=== PATIENT | male | born 1965 | race Two or more races ===

== ENCOUNTER 2017-12-05 13:55 | Inpatient (IN) | payer MEDICARE, MEDICAID ==
[~2017-12-05] VITALS: Ht 172.7 cm; Wt 65.4 kg
[~2017-12-05 13:55] MED LIST: CLONIDINE; [UNRECOGNIZED DRUG - OTHER]
[2017-12-05] MEDS: NICARDIPINE 25MG/250ML BAG KIT 250 ML IV SCH ×2 (14:47→19:30)
[2017-12-05] MEDS ORDERED: MIDAZOLAM DRIP 50 mg/50mL 50 ML IV ONE (15:04)
[2017-12-05 15:10] LABS: INR 1.27 (0.9-1.15); Partial Thromboplastin Time 21.7 sec (23.78-33.04); Prothrombin Time 13.4 sec (9.27-12.13)
[2017-12-05 15:13] LABS: Lactic Acid w/Reflex 8.6 mmol/L (0.4-2.0)
[2017-12-05 15:16] LABS: Alanine Aminotransferase 30 U/L (16-61); Albumin 3.5 g/dL (3.4-5.0); Alkaline Phosphatase 230 U/L (45-117); Anion Gap 27 (5-15); Aspartate Aminotransferase 35 U/L (15-37); BUN/Creatinine Ratio 5.8; Bilirubin, Total 0.6 mg/dL (0.2-1.0); Blood Alcohol < 3.0 mg/dL (0-5); Blood Urea Nitrogen 53 mg/dL (7-18); Calcium 6.7 mg/dL (8.5-10.1); Carbon Dioxide 16 mmol/L (21-32); Chloride 71 mmol/L (98-107); GFR African American 8 mL/min; GFR Non-African American 7 mL/min; Magnesium 2.7 mg/dL (1.6-2.6); Potassium 4.6 mmol/L (3.5-5.1); Total Protein 7.3 g/dL (6.4-8.2)
[2017-12-05] MEDS: MIDAZOLAM DRIP 50 mg/50mL 50 ML IV SCH ×2 (15:25→22:16)
[2017-12-05 15:28] LABS: Sodium 114 mmol/L (136-145)
[2017-12-05 15:29] LABS: Glucose 2148 mg/dL (74-106)
[2017-12-05] MEDS ORDERED: InsuLIN R (HUMAN) 100 UNITS in SODIUM CHL 0.9% 99 ML IV SCH ×3 (15:31→23:52)
[2017-12-05 15:33] LABS: Basophils # (auto) 0 uL; Eosinophils # (auto) 0 uL; Eosinophils % (auto) 0.4 % (0.0-7.0); Hematocrit 37.4 % (41.0-53.0); Hemoglobin 10.5 g/dL (13.5-17.5); Lymphocytes # (auto) 0.4 uL; Lymphocytes % (auto) 3.4 % (10.0-50.0); Mean Corpuscular Hemoglobin 31.6 pg (28.0-32.0); Mean Corpuscular Hgb Conc. 28.1 g/dL (32.0-36.0); Mean Corpuscular Volume 112.4 fL (80.0-100.0); Monocytes # (auto) 0.4 uL; Monocytes % (auto) 3.5 % (0.0-12.0); Neutrophils # (auto) 10.4 uL; Neutrophils % (auto) 92.7 % (37.0-80.0); Nucleated Red Blood Cells % 0.1 %; Platelet Count (auto) 185 10^3/uL (140-450); Red Blood Cells 3.33 10^6/uL (4.5-5.90); White Blood Cell 11.2 10^3/uL (4.4-10.8)
[2017-12-05 15:45] VITALS: BP 115/82
[2017-12-05 16:22] VITALS: BP 115/82
[2017-12-05] MEDS ORDERED: DEXTROSE (50%) 50ML SYRG IV PRN (16:30)
[2017-12-05] MEDS ORDERED: MORPHINE SULF(PF) 0.5MG/ML 10ML VIAL IV PRN (16:30)
[2017-12-05] MEDS ORDERED: PIPERACILLIN-TAZOB 2.25GM 50 ML IV ONE (16:30)
[2017-12-05] MEDS ORDERED: InsuLIN REG 1unit/0.01ml Soln (100units/ml) IV ONE (16:30)
[2017-12-05] MEDS ORDERED: VANCOMYCIN PER PHARMACY 0 MG IV SCH (16:30)
[2017-12-05] MEDS ORDERED: ALBUTEROL SULF 2.5 MG/0.5ML(0.5%) NEB SOLN NEB PRN (16:30)
[2017-12-05] MEDS ORDERED: NITROGLYCERIN 0.4 MG SL TAB SL PRN (16:30)
[2017-12-05] MEDS ORDERED: LORazepam 2MG/ML-1ML VIAL IV PRN (16:30)
[2017-12-05] MEDS: PROPOFOL 100 ML IV SCH (16:37)
[2017-12-05] MEDS: ACCU-CHEK COMFORT CURVE STRIP VI SCH ×5 (17:08→22:35)
[2017-12-05 17:48] LABS: BUN/Creatinine Ratio 6.5; Calcium 6.1 mg/dL (8.5-10.1); Potassium 4.4 mmol/L (3.5-5.1)
[2017-12-05] MEDS ORDERED: AZITHROMYCIN 500MG/ 250ML 250 ML IV ONE (18:00)
[2017-12-05] MEDS ORDERED: VANCOMYCIN 1GM/250ML 250 ML IV ONE (18:00)
[2017-12-05 18:19] VITALS: BP 116/54
[2017-12-05] MEDS: ALBUTEROL SULF 2.5 MG/0.5ML(0.5%) NEB SOLN NEB SCH (18:19)
[2017-12-05] MEDS: IPRATROPIUM BROM 0.5 MG/2.5ML INH SOL NEB SCH (18:19)
[2017-12-05] MEDS ORDERED: ALBUTEROL SULF 2.5 MG/0.5ML(0.5%) NEB SOLN NEB ONE (19:00)
[2017-12-05 20:00] VITALS: BP 119/57
[2017-12-05 20:34] VITALS: BP 132/45
[2017-12-05 22:19] VITALS: BP 112/44
[2017-12-05] MEDS ORDERED: InsuLIN REG 1unit/0.01ml Soln (100units/ml) ONE (22:40)
[2017-12-05 23:03] LABS: BUN/Creatinine Ratio 6.1; Calcium 6.2 mg/dL (8.5-10.1)
[2017-12-05 23:22] LABS: Potassium 2.7 mmol/L (3.5-5.1)
[2017-12-06] VITALS (29 sets, daily range): BP systolic 100–152; BP diastolic 34–80
[2017-12-06] MEDS ORDERED: DEXTROSE (50%) 50ML SYRG IV PRN
[2017-12-06] MEDS: IPRATROPIUM BROM 0.5 MG/2.5ML INH SOL NEB SCH ×4 (00:17→18:00)
[2017-12-06] MEDS: ALBUTEROL SULF 2.5 MG/0.5ML(0.5%) NEB SOLN NEB SCH ×4 (00:17→18:00)
[2017-12-06] MEDS: ACCU-CHEK COMFORT CURVE STRIP VI SCH ×27 (01:30→22:30)
[2017-12-06] MEDS ORDERED: SODIUM CHL 3% 500 ML IV ONE (02:30)
[2017-12-06] MEDS ORDERED: POTASSIUM CHL 20MEQ/100ML 100 ML IV ONE (02:33)
[2017-12-06] MEDS: POTASSIUM CHL 20MEQ/100ML 100 ML IV SCH ×8 (03:04→22:20)
[2017-12-06] MEDS: PIPERACILLIN-TAZOB 2.25GM 50 ML IV SCH ×2 (04:57→19:32)
[2017-12-06] MEDS: MIDAZOLAM DRIP 50 mg/50mL 50 ML IV SCH (05:10)
[2017-12-06 05:55] LABS: Hematocrit 29.1 % (41.0-53.0); Hemoglobin 9.4 g/dL (13.5-17.5); Mean Corpuscular Hemoglobin 31.8 pg (28.0-32.0); Mean Corpuscular Hgb Conc. 32.1 g/dL (32.0-36.0); Platelet Count (auto) 78 10^3/uL (140-450); Red Blood Cells 2.94 10^6/uL (4.5-5.90); Red Cell Distribution Width 13.9 % (11.8-14.3); White Blood Cell 6.8 10^3/uL (4.4-10.8)
[2017-12-06 06:24] LABS: Albumin 2.5 g/dL (3.4-5.0); BUN/Creatinine Ratio 6.2; Bilirubin, Total 0.6 mg/dL (0.2-1.0); Calcium 7.2 mg/dL (8.5-10.1); Total Protein 5.3 g/dL (6.4-8.2)
[2017-12-06 06:30] LABS: Potassium 2.6 mmol/L (3.5-5.1)
[2017-12-06 06:32] LABS: Basophils % (manual) 0 (0.0-2.0); Blast Cells 0; Eosinophils % (manual) 0 (0-7); Metamyelocytes % 0; Myelocytes % 0; Promyelocytes % 0; Reactive Lymphocytes 0
[2017-12-06 06:54] LABS: Band Neutrophils % (manual) 8; Lymphocytes % (manual) 3 (10.0-50.0); Monocytes % (manual) 6 (0-12)
[2017-12-06] MEDS ORDERED: NICARDIPINE 25MG/250ML BAG KIT 250 ML IV SCH (07:45)
[2017-12-06] MEDS: NICARDIPINE 25MG/250ML BAG KIT 250 ML IV SCH ×4 (08:00→20:30)
[2017-12-06] MEDS: AZITHROMYCIN 500MG/ 250ML 250 ML IV SCH (10:30)
[2017-12-06] MEDS ORDERED: VANCOMYCIN 1GM/250ML 250 ML IV ONE (13:00)
[2017-12-06] MEDS ORDERED: SODIUM CHL 0.9% 1000 ML BAG XX ONE (15:30)
[2017-12-06] MEDS ORDERED: EPOETIN ALFA 10,000 UNIT/1 ML VIAL IV ONE (15:30)
[2017-12-06] MEDS: PROPOFOL 100 ML IV SCH ×2 (15:48→21:41)
[2017-12-06 15:59] LABS: BUN/Creatinine Ratio 6.5; Calcium 7.7 mg/dL (8.5-10.1)
[2017-12-06 16:10] LABS: Potassium 2.9 mmol/L (3.5-5.1)
[2017-12-06] MEDS ORDERED: DILTIAZEM HCL 25 MG/5 ML VIAL IV ONE ×3 (16:17→16:45)
[2017-12-06] MEDS: DILTIAZEM 125mg/125ml BAG KIT 125 ML IV SCH (17:17)
[2017-12-06] MEDS ORDERED: LIDOCAINE 2% (LOCAL ANESTH.) PF 5ml SDV ONE (17:20)
[2017-12-06] MEDS ORDERED: IODIXANOL 320MG/ML 100ML BTL IV ONE (17:20)
[2017-12-06] MEDS ORDERED: ANGIOMAX 250 MG VIAL IV ONE (17:25)
[2017-12-06] MEDS ORDERED: SODIUM CHL 0.9% 0 ML ONE (17:26)
[2017-12-06] MEDS ORDERED: EPTIFIBATIDE INJ (2MG/ML) 10ML VIAL IV ONE (17:26)
[2017-12-06] MEDS ORDERED: ATROPINE SULF 1 MG/10ml SYR ONE (18:05)
[2017-12-06] MEDS ORDERED: EPTIFIBATIDE DRIP(0.75MG/ML) 0 ML IV ONE (18:05)
[2017-12-06] MEDS ORDERED: DIGOXIN (250MCG/ML) 2 ML AMPULE ONE (18:13)
[2017-12-07] VITALS (101 sets, daily range): BP systolic 80–148; BP diastolic 31–84
[2017-12-07] MEDS: ALBUTEROL SULF 2.5 MG/0.5ML(0.5%) NEB SOLN NEB SCH ×4 (00:24→18:58)
[2017-12-07] MEDS: IPRATROPIUM BROM 0.5 MG/2.5ML INH SOL NEB SCH ×4 (00:24→18:58)
[2017-12-07 01:07] LABS: Basophils # (auto) 0 uL; Basophils % (auto) 0.1 % (0.0-2.0); Eosinophils # (auto) 0 uL; Eosinophils % (auto) 0.1 % (0.0-7.0); Hematocrit 34.6 % (41.0-53.0); Hemoglobin 11.9 g/dL (13.5-17.5); Lymphocytes # (auto) 0.6 uL; Lymphocytes % (auto) 3.6 % (10.0-50.0); Mean Corpuscular Hemoglobin 30.6 pg (28.0-32.0); Mean Corpuscular Hgb Conc. 34.3 g/dL (32.0-36.0); Mean Corpuscular Volume 89.1 fL (80.0-100.0); Monocytes # (auto) 0.7 uL; Monocytes % (auto) 4.2 % (0.0-12.0); Neutrophils # (auto) 16.1 uL; Platelet Count (auto) 101 10^3/uL (140-450); Red Blood Cells 3.88 10^6/uL (4.5-5.90); Red Cell Distribution Width 13.8 % (11.8-14.3); White Blood Cell 17.5 10^3/uL (4.4-10.8)
[2017-12-07 01:17] LABS: Albumin 2.4 g/dL (3.4-5.0); BUN/Creatinine Ratio 6.5; Bilirubin, Total 0.6 mg/dL (0.2-1.0); Calcium 8.1 mg/dL (8.5-10.1); Potassium 3.8 mmol/L (3.5-5.1); Total Protein 5.6 g/dL (6.4-8.2)
[2017-12-07] MEDS: NICARDIPINE 25MG/250ML BAG KIT 250 ML IV SCH ×5 (01:30→21:30)
[2017-12-07] MEDS: ACCU-CHEK COMFORT CURVE STRIP VI SCH ×9 (01:30→23:30)
[2017-12-07] MEDS ORDERED: PHENYLEPHRINE IV 250 ML IV ONE ×3 (02:33→06:06)
[2017-12-07] MEDS: PHENYLEPHRINE INJ 20 MG in D5W 5% 250 ML IV SCH ×2 (02:56→05:08)
[2017-12-07 04:03] LABS: Basophils # (auto) 0 uL; Basophils % (auto) 0.1 % (0.0-2.0); Eosinophils # (auto) 0 uL; Eosinophils % (auto) 0.2 % (0.0-7.0); Hematocrit 31.2 % (41.0-53.0); Lymphocytes # (auto) 0.9 uL; Lymphocytes % (auto) 5.9 % (10.0-50.0); Mean Corpuscular Hemoglobin 31.4 pg (28.0-32.0); Mean Corpuscular Hgb Conc. 35.2 g/dL (32.0-36.0); Mean Corpuscular Volume 89.4 fL (80.0-100.0); Monocytes # (auto) 0.6 uL; Monocytes % (auto) 4.1 % (0.0-12.0); Neutrophils # (auto) 14.1 uL; Neutrophils % (auto) 89.7 % (37.0-80.0); Nucleated Red Blood Cells % 0.2 %; Platelet Count (auto) 87 10^3/uL (140-450); Red Blood Cells 3.49 10^6/uL (4.5-5.90); Red Cell Distribution Width 13.7 % (11.8-14.3); White Blood Cell 15.7 10^3/uL (4.4-10.8)
[2017-12-07 04:28] LABS: Albumin 2.2 g/dL (3.4-5.0); BUN/Creatinine Ratio 6.1; Bilirubin, Total 0.6 mg/dL (0.2-1.0); Calcium 7.6 mg/dL (8.5-10.1); Potassium 4.1 mmol/L (3.5-5.1); Total Protein 5.1 g/dL (6.4-8.2)
[2017-12-07] MEDS: PIPERACILLIN-TAZOB 2.25GM 50 ML IV SCH ×2 (04:59→17:15)
[2017-12-07] MEDS ORDERED: DEXTROSE (50%) 50ML SYRG IV PRN (06:45)
[2017-12-07] MEDS: InsuLIN REG 1unit/0.01ml Soln (100units/ml) SC SCH ×4 (06:52→23:31)
[2017-12-07] MEDS: PROPOFOL 100 ML IV SCH (08:11)
[2017-12-07] MEDS ORDERED: PHENYLEPHRINE INJ 40 MG in SODIUM CHL 0.9% 250 ML IV SCH (08:26)
[2017-12-07] MEDS ORDERED: PHENYLEPHRINE INJ 40 MG in D5W 5% 250 ML IV SCH (08:30)
[2017-12-07] MEDS ORDERED: SODIUM CHL 0.9% 1000 ML BAG XX ONE (08:45)
[2017-12-07] MEDS: PHENYLEPHRINE INJ 40 MG in D5W 5% 250 ML IV SCH ×4 (08:53→21:15)
[2017-12-07] MEDS: AZITHROMYCIN 500MG/ 250ML 250 ML IV SCH (09:54)
[2017-12-07] MEDS: DILTIAZEM 125mg/125ml BAG KIT 125 ML IV SCH (10:20)
[2017-12-07] MEDS: NOREPINEPHRINE 8 MG/250ML KIT 250 ML IV SCH (11:15)
[2017-12-07] MEDS ORDERED: NOREPINEPHRINE 8 MG/250ML KIT 250 ML IV ONE (11:17)
[2017-12-07] MEDS: MIDAZOLAM DRIP 50 mg/50mL 50 ML IV SCH (15:11)
[2017-12-08] VITALS (56 sets, daily range): BP systolic 35–164; BP diastolic 12–79
[2017-12-08] MEDS: ALBUTEROL SULF 2.5 MG/0.5ML(0.5%) NEB SOLN NEB SCH ×3 (00:19→11:59)
[2017-12-08] MEDS: IPRATROPIUM BROM 0.5 MG/2.5ML INH SOL NEB SCH ×3 (00:19→11:59)
[2017-12-08] MEDS ORDERED: PHENYLEPHRINE IV 250 ML IV ONE ×2 (00:27→06:45)
[2017-12-08] MEDS ORDERED: PHENYLEPHRINE HCL 10 MG/ML VL ONE ×2 (00:28→06:46)
[2017-12-08] MEDS: NICARDIPINE 25MG/250ML BAG KIT 250 ML IV SCH ×3 (02:30→12:30)
[2017-12-08 04:54] LABS: Basophils # (auto) 0 uL; Eosinophils # (auto) 0 uL; Eosinophils % (auto) 0.1 % (0.0-7.0); Hemoglobin 10.6 g/dL (13.5-17.5); Lymphocytes # (auto) 0.3 uL; Red Blood Cells 3.35 10^6/uL (4.5-5.90); White Blood Cell 13.5 10^3/uL (4.4-10.8)
[2017-12-08 04:59] LABS: Basophils % (auto) 0.2 % (0.0-2.0); Hematocrit 31.1 % (41.0-53.0); Lymphocytes % (auto) 2.5 % (10.0-50.0); Mean Corpuscular Hemoglobin 31.6 pg (28.0-32.0); Mean Corpuscular Hgb Conc. 34.1 g/dL (32.0-36.0); Mean Corpuscular Volume 92.8 fL (80.0-100.0); Monocytes # (auto) 0.4 uL; Monocytes % (auto) 2.8 % (0.0-12.0); Neutrophils # (auto) 12.7 uL; Neutrophils % (auto) 94.4 % (37.0-80.0); Nucleated Red Blood Cells % 0.1 %; Platelet Count (auto) 60 10^3/uL (140-450); Red Cell Distribution Width 13.9 % (11.8-14.3)
[2017-12-08] MEDS: PIPERACILLIN-TAZOB 2.25GM 50 ML IV SCH (05:00)
[2017-12-08] MEDS: PHENYLEPHRINE INJ 40 MG in D5W 5% 250 ML IV SCH ×2 (05:01→16:04)
[2017-12-08 05:16] LABS: BUN/Creatinine Ratio 6.2; Calcium 7.6 mg/dL (8.5-10.1)
[2017-12-08 05:26] LABS: Potassium 6.6 mmol/L (3.5-5.1)
[2017-12-08] MEDS: ACCU-CHEK COMFORT CURVE STRIP VI SCH ×2 (06:00→12:00)
[2017-12-08] MEDS: InsuLIN REG 1unit/0.01ml Soln (100units/ml) SC SCH ×2 (06:00→12:00)
[2017-12-08] MEDS ORDERED: ENOXAPARIN SOD 80 MG/0.8ML SYRINGE SC SCH (10:00)
[2017-12-08] MEDS: AZITHROMYCIN 500MG/ 250ML 250 ML IV SCH (10:00)
[2017-12-08] MEDS ORDERED: ALBUTEROL SULF 2.5 MG/0.5ML(0.5%) NEB SOLN NEB ONE ×2 (11:30→16:30)
[2017-12-08] MEDS: NOREPINEPHRINE 8 MG/250ML KIT 250 ML IV SCH (11:35)
[2017-12-08 15:33] LABS: BUN/Creatinine Ratio 6.3; Calcium 8.1 mg/dL (8.5-10.1)
[2017-12-08] MEDS ORDERED: DEXTROSE (50%) 50ML SYRG IV ONE (16:30)
[2017-12-08] MEDS ORDERED: CALCIUM GLUC 4.65meq/50ml D5AE 50 ML IV ONE (16:30)
[2017-12-08] MEDS ORDERED: InsuLIN REG 1unit/0.01ml Soln (100units/ml) IV ONE (16:30)
[2017-12-08] MEDS ORDERED: SODIUM BICARBONATE 8.4 % INJ 50ML VIAL IV ONE (16:30)
[2017-12-08] MEDS ORDERED: SODIUM POLYSTYRENE SULF 15GM/60ML SUSP PO ONE (16:30)
[2017-12-08] MEDS ORDERED: SODIUM BICARBONATE 8.4% INJ 50ML SYRINGE ONE (16:34)
[2017-12-08] MEDS ORDERED: MORPHINE SULF INJ 2 MG/ML SYRINGE 1ML IV PRN (17:30)
[2017-12-08] MEDS ORDERED: LORazepam 2MG/ML-1ML VIAL IV PRN (17:30)
[2017-12-08] MEDS ORDERED: SODIUM BICARBONATE 8.4% INJ 50ML SYRINGE IV ONE (22:49)
== END 2017-12-08 22:50 | disposition expired | DRG 208 ==
LOC: EDBD 13:55 → ER 13:57 → TELE 13:58 → ICU WEST 12-06 21:09
PROVIDERS: ADMIT Internal Medicine; ATTEND Internal Medicine Pulmonary Disease
PROC: 5A1945Z Respiratory Ventilation, 24-96 Consecutive Hours (ICD-10-PCS; principal; 2017-12-05)
PROC: 0BH17EZ Insertion of Endotracheal Airway into Trachea, Via Natural or Artificial Opening (ICD-10-PCS; 2017-12-05)
PROC: 5A12012 Performance of Cardiac Output, Single, Manual (ICD-10-PCS; 2017-12-05)
PROC: 4A023N7 Measurement of Cardiac Sampling and Pressure, Left Heart, Percutaneous Approach (ICD-10-PCS; 2017-12-06)
PROC: B2151ZZ Fluoroscopy of Left Heart using Low Osmolar Contrast (ICD-10-PCS; 2017-12-06)
PROC: B2111ZZ Fluoroscopy of Multiple Coronary Arteries using Low Osmolar Contrast (ICD-10-PCS; 2017-12-06)
PROC: 5A1D70Z Performance of Urinary Filtration, Intermittent, Less than 6 Hours Per Day (ICD-10-PCS; 2017-12-06)
PROC: 5A1D70Z Performance of Urinary Filtration, Intermittent, Less than 6 Hours Per Day (ICD-10-PCS; 2017-12-07)
DX: J96.00 Acute respiratory failure, unspecified whether with hypoxia or hypercapnia (principal); J69.0 Pneumonitis due to inhalation of food and vomit; N18.6 End stage renal disease; E11.11 Type 2 diabetes mellitus with ketoacidosis with coma; I71.02 Dissection of abdominal aorta; I13.11 Hypertensive heart and chronic kidney disease without heart failure, with stage 5 chronic kidney disease, or end stage renal disease; E87.1 Hypo-osmolality and hyponatremia; G93.1 Anoxic brain damage, not elsewhere classified; Z94.0 Kidney transplant status; I46.9 Cardiac arrest, cause unspecified; E11.22 Type 2 diabetes mellitus with diabetic chronic kidney disease; E11.51 Type 2 diabetes mellitus with diabetic peripheral angiopathy without gangrene; F17.200 Nicotine dependence, unspecified, uncomplicated; E87.5 Hyperkalemia; E87.6 Hypokalemia; I25.10 Atherosclerotic heart disease of native coronary artery without angina pectoris; H57.04 Mydriasis; I48.91 Unspecified atrial fibrillation; Z66 Do not resuscitate; Z83.3 Family history of diabetes mellitus; Z99.2 Dependence on renal dialysis; Z79.899 Other long term (current) drug therapy
CPT/HCPCS: 31500; 36415; 36600; 51702; 70450; 71045; 74176; 80048; 80053; 80061; 80202; 80320; 82550; 82805; 82962; 83036; 83605; 83735; 84132; 84443; 84484; 85007; 85025; 85027; 85610; 85652; 85730; 87040; 87070; 87077; 87081; 87186; 87205; 90935; 93005; 93306; 93458; 94002; 94003; 94640; 94644; 96361; 96365; 99152; 99291; J0610; J1815; J2250; J2543; J2704; J3480; J7060; Q9967